=== PATIENT | male | born 1955 | race Caucasian/White ===

== ENCOUNTER 2020-04-17 10:53 | Emergency (ER) | payer OTHER, MEDICAID ==
[~2020-04-17] VITALS: Ht 170.2 cm; Wt 62.6 kg
[~2020-04-17 10:53] MED LIST: CALC600T56 PO; CHOL400T PO; VALP-22 PO; [UNRECOGNIZED DRUG - CODE] PO
[2020-04-17 10:54] VITALS: BP 124/79
--- NOTE | 2020-04-17 11:05 | NUR ---
PT C/O LEFT MAXILLARY AREA SWELLING FOR 3 DAYS ,DENIES TRUAMA ,N/V .PT AOX4 , AFIBRILE , AMBULATORY WITH STEADY GAIT , PINK PALPEBRAL CONJUNCTIVA , ANICTERIC SCLERA , MOIST ORAL CAVITY , NOTABLE LFT MAXILLARY TENDERNESS . PMHXS MENTAL ILLNESS. UNRECALLED MENTAL MEDS.
--- NOTE | 2020-04-17 11:10 | NUR ---
DR SANCHEZ AT BEDSIDE EVALUATING PT.
--- NOTE | 2020-04-17 11:18 | NUR ---
Patient discharged with v/s stable. Written and verbal after care instructions given and explained regarding dental carries Patient alert, oriented and verbalized understanding of instructions. Ambulatory with steady gait. All questions addressed prior to discharge. ID band removed. Patient advised to follow up with PMD. Rx of augmentin and ibuprofen given. Patient educated on indication of medication including possible reaction and side effects. Opportunity to ask questions provided and answered.
[2020-04-17 11:27] VITALS: BP 124/79
== END 2020-04-17 11:18 | disposition home or self-care (01) ==
LOC: MED 10:53
DX: K04.7 Periapical abscess without sinus (principal); Z88.5 Allergy status to narcotic agent; Z79.899 Other long term (current) drug therapy
CPT/HCPCS: 99283